=== PATIENT | male | born 1945 | race Caucasian/White ===

== ENCOUNTER → 2019-01-31 | Outpatient (CLI) | payer MEDICARE ==
--- NOTE | 2019-01-31 09:20 | KCIC ---
CLINICAL HISTORY: AAA screening, htn, former smoker COMPARISON: None available. TECHNIQUE: The abdominal aorta was examined from the diaphragm to the proximal common iliac arteries. FINDINGS: The proximal abdominal aorta measures 2.2 cm in AP dimension and 2.2 cm in transverse dimension. The peak systolic velocity in the proximal aorta measures 112 cm/s. The mid abdominal aorta measures 1.9 cm in AP dimension and 1.7 cm in transverse dimension.The peak systolic velocity in the mid aorta measures 96.2 cm/s. The distal abdominal aorta measures 1.4 cm in AP dimension and 1.6 cm in transverse dimension.The peak systolic velocity in the distal aorta measures 74 cm/s. The right common iliac artery measures 1.2 cm x 1.1 cm in diameter. The left common iliac artery measures 1.1 cm x 1 cm in diameter. IMPRESSION: No evidence for aortic aneurysm. Electronically signed by: Omari Donaldson MD (01/31/2019 9:18 AM) [facility]
== END | disposition home or self-care (01) ==
LOC: KCIC US 07:44
PROVIDERS: ATTEND Family Medicine
DX: Z13.6 Encounter for screening for cardiovascular disorders (principal); I10 Essential (primary) hypertension; Z87.891 Personal history of nicotine dependence
CPT/HCPCS: 76770